=== PATIENT | female | born 2000 | race Caucasian/White ===

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

== ENCOUNTER 2022-01-22 13:34 | Emergency (ER) | payer MEDICAID ==
[~2022-01-22] VITALS: Ht 172.7 cm; Wt 92.8 kg
[2022-01-22 13:52] VITALS: BP 114/63
--- NOTE | 2022-01-22 13:58 | NUR ---
SHAYY. HANDED ON URINE CUP.
--- NOTE | 2022-01-22 15:06 | NUR ---
21 Y/O FEMALE BIB SELF C/O 01/13 LLQ ABD PAIN, URINARY BURNING X 1 WEEK. 5 WEEKS . PT DENIES DYSURIA, HEMATURIA. LMP 12/13/21. LUNG SOUNDS CTA. PT DENIES CHEST PAIN, SOB. PT DENIES FEVER OR CHILLS. PT ALERT AND ORIENTED X4. BED LOCKED IN LOWEST POSITION. BED RAILX1. PMH: DENIES MEDS:DENIES NKA
[2022-01-22 15:37] LABS: BASOPHILS # (AUTO) 0.1 K/uL (0.00-0.22); BASOPHILS % (AUTO) 0.6 % (0.0-2.0); EOSINOPHILS # (AUTO) 0.2 K/uL (0-0.4); EOSINOPHILS % (AUTO) 2.4 % (0.0-4.0); HEMATOCRIT 41.5 % (36-48); HEMOGLOBIN 13.7 g/dL (12.0-16.0); LYMPHOCYTES # (AUTO) 2.2 K/uL (2.5-16.5); MEAN CORPUSCULAR HEMOGLOBIN 28 pg (27-31); MEAN CORPUSCULAR HGB CONC 33 g/dL (33-37); MEAN CORPUSCULAR VOLUME 83.4 fL (80-94); MONOCYTES # (AUTO) 0.8 K/uL (0.8-1.0); MONOCYTES % (AUTO) 7.6 % (1.7-9.3); NEUTROPHILS # (AUTO) 6.8 K/uL (1.8-7.7); NEUTROPHILS % (AUTO) 67.4 % (42.2-75.2); PLATELET COUNT (AUTO) 188 K/uL (140-450); RED BLOOD CELL COUNT(AUTO) 4.98 MIL/uL (4.20-5.40); RED CELL DISTRIBUTION WIDTH 14.7 % (11.6-13.7); WHITE BLOOD COUNT (AUTO) 10.1 K/uL (4.5-11.0)
--- NOTE | 2022-01-22 16:17 | NUR ---
US AT PT BEDSIDE
[2022-01-22 16:19] LABS: BILIRUBIN,URINE NEGATIVE (NEGATIVE); BLOOD, URINE NEGATIVE (NEGATIVE); COLOR,URINE YELLOW (YELLOW); LEUKOCYTE ESTERASE ,URINE TRACE (NEGATIVE); NITRITE, URINE NEGATIVE (NEGATIVE); PH,URINE 5.5 (5.0-9.0); UGLUCOSE NEGATIVE (NEGATIVE)
[2022-01-22 16:24] LABS: APPEARANCE,URINE HAZY (CLEAR)
[2022-01-22 16:32] LABS: RBC,URINE NONE SEEN /HPF (0-5); WBC,URINE 0-5 /HPF (0-5)
[2022-01-22] MEDS ORDERED: NITR100C7 PO (17:29)
[2022-01-22 17:51] VITALS: BP 117/74
== END 2022-01-22 17:51 | disposition home or self-care (01) ==
LOC: MED 13:34
DX: O23.41 Unspecified infection of urinary tract in pregnancy, first trimester (principal); O34.81 Maternal care for other abnormalities of pelvic organs, first trimester; N83.202 Unspecified ovarian cyst, left side; Z3A.01 Less than 8 weeks gestation of pregnancy; Z79.2 Long term (current) use of antibiotics
CPT/HCPCS: 36415; 76817; 81001; 81025; 84702; 85025; 86900; 86901; 87086; 99284; Q0092

== ENCOUNTER 2022-01-27 19:33 | Emergency (ER) | payer MEDICAID ==
[~2022-01-27] VITALS: Ht 175.3 cm; Wt 93.4 kg
[~2022-01-27 19:33] MED LIST: NITR100C7 PO
[2022-01-27 19:39] VITALS: BP 135/69
--- NOTE | 2022-01-27 19:45 | NUR ---
URINE COLLECTED AND HANDED TO LAB
--- NOTE | 2022-01-27 19:51 | NUR ---
PT TAKEN TO BED 6
--- NOTE | 2022-01-27 19:53 | NUR ---
Dr. Ralph examining patient.
--- NOTE | 2022-01-27 20:00 | NUR ---
21/F BIB SELF C/O VAGINAL BLEEDING. PATIENT STATED THAT BLEEDING STARTED THIS MORNING AND HALF A LINER WAS SATURATED IN BLOOD. PATIENT IS GETTING CARE, THE LAST VISIT WAS 2WKS AGO ON Wednesday01/12/2022. PATIENT STATED "THIS IS MY SECOND , I LOST THE FIRST ONE, I AM CURRENTLY 6WKS ." PATIENT IS CRYING AND COOPERATIVE. RR EVEN AND UNLABORED. NO S/S OF DISTRESS. PATIENT DENIES N/V/D/C/SOB/CP AT THIS TIME. PLACED IN A GOWN AND BLANKETS FOR COMFORT. BED LOW AND LOCKED. SIDE RAIL UP FOR SAFETY. CALL LIGHT IN REACH. ALL NEEDS MET AT THIS TIME. LMP DECEMBER 13 2021 PMHX DENIES MEDS ABX(UNKNOWN) FOR UTI X1WK NKA
--- NOTE | 2022-01-27 20:03 | NUR ---
LAB AT BEDSIDE
--- NOTE | 2022-01-27 20:10 | NUR ---
Ultrasound at bedside.
[2022-01-27 20:19] LABS: BASOPHILS # (AUTO) 0.1 K/uL (0.00-0.22); BASOPHILS % (AUTO) 0.8 % (0.0-2.0); EOSINOPHILS # (AUTO) 0.3 K/uL (0-0.4); EOSINOPHILS % (AUTO) 2.5 % (0.0-4.0); HEMOGLOBIN 12.7 g/dL (12.0-16.0); LYMPHOCYTES # (AUTO) 2.3 K/uL (2.5-16.5); LYMPHOCYTES % (AUTO) 22.7 % (20.5-51.1); MEAN CORPUSCULAR HEMOGLOBIN 28 pg (27-31); MEAN CORPUSCULAR HGB CONC 33 g/dL (33-37); MEAN CORPUSCULAR VOLUME 83.1 fL (80-94); MONOCYTES # (AUTO) 0.8 K/uL (0.8-1.0); MONOCYTES % (AUTO) 7.6 % (1.7-9.3); NEUTROPHILS # (AUTO) 6.7 K/uL (1.8-7.7); NEUTROPHILS % (AUTO) 66.4 % (42.2-75.2); PLATELET COUNT (AUTO) 303 K/uL (140-450); RED BLOOD CELL COUNT(AUTO) 4.57 MIL/uL (4.20-5.40); RED CELL DISTRIBUTION WIDTH 14.9 % (11.6-13.7); WHITE BLOOD COUNT (AUTO) 10.1 K/uL (4.5-11.0)
[2022-01-27 20:22] LABS: BILIRUBIN,URINE NEGATIVE (NEGATIVE); BLOOD, URINE 3+ (NEGATIVE); COLOR,URINE YELLOW (YELLOW); LEUKOCYTE ESTERASE ,URINE TRACE (NEGATIVE); NITRITE, URINE NEGATIVE (NEGATIVE); UGLUCOSE NEGATIVE (NEGATIVE)
[2022-01-27 20:28] LABS: APPEARANCE,URINE HAZY (CLEAR)
[2022-01-27 20:38] LABS: ALBUMIN 3.8 g/dL (3.4-5.0); ANION GAP 13.2 (8-16); CARBON DIOXIDE 24.5 mmol/L (21-32); CREATININE 0.8 mg/dL (0.6-1.3); POTASSIUM 3.7 mmol/L (3.5-5.1); TOTAL BILIRUBIN 0.3 mg/dL (0.0-1.0)
[2022-01-27 20:44] LABS: RBC,URINE 0-5 /HPF (0-5); WBC,URINE 0-5 /HPF (0-5)
--- NOTE | 2022-01-27 21:00 | NUR ---
MD JOSÉ AT BEDSIDE
[2022-01-27 21:01] VITALS: BP 122/71
--- NOTE | 2022-01-27 21:01 | NUR ---
Patient discharged with v/s stable. Written and verbal after care instructions given and explained. Patient verbalized understanding. Ambulatory with steady gait. All questions addressed prior to discharge. Advised to follow up with PMD.
--- NOTE | 2022-01-27 21:01 | NUR ---
The patient's care was reviewed and supervised by Debora Meza RN.
== END 2022-01-27 21:01 | disposition home or self-care (01) ==
LOC: EDSEX → MED 19:33
DX: O20.8 Other hemorrhage in early pregnancy (principal); Z3A.01 Less than 8 weeks gestation of pregnancy; Z79.899 Other long term (current) drug therapy
CPT/HCPCS: 36415; 76801; 80053; 81001; 84702; 85025; 86900; 86901; 87086; 99284; Q0092

== ENCOUNTER 2022-02-03 12:47 | Emergency (ER) | payer MEDICAID ==
[~2022-02-03] VITALS: Ht 172.7 cm; Wt 92.1 kg
[2022-02-03 13:01] VITALS: BP 124/61
--- NOTE | 2022-02-03 13:42 | NUR ---
ULTRASOUND AT PATIENT BEDSIDE
[2022-02-03 13:43] LABS: BASOPHILS # (AUTO) 0.1 K/uL (0.00-0.22); BASOPHILS % (AUTO) 0.6 % (0.0-2.0); EOSINOPHILS # (AUTO) 0.1 K/uL (0-0.4); EOSINOPHILS % (AUTO) 1.3 % (0.0-4.0); HEMATOCRIT 41.1 % (36-48); HEMOGLOBIN 13.7 g/dL (12.0-16.0); LYMPHOCYTES % (AUTO) 21.1 % (20.5-51.1); MEAN CORPUSCULAR HEMOGLOBIN 28 pg (27-31); MEAN CORPUSCULAR HGB CONC 33 g/dL (33-37); MEAN CORPUSCULAR VOLUME 83.9 fL (80-94); MONOCYTES # (AUTO) 0.5 K/uL (0.8-1.0); MONOCYTES % (AUTO) 5.7 % (1.7-9.3); NEUTROPHILS # (AUTO) 6.8 K/uL (1.8-7.7); NEUTROPHILS % (AUTO) 71.3 % (42.2-75.2); PLATELET COUNT (AUTO) 301 K/uL (140-450); RED CELL DISTRIBUTION WIDTH 15.1 % (11.6-13.7); WHITE BLOOD COUNT (AUTO) 9.6 K/uL (4.5-11.0)
[2022-02-03 13:52] LABS: APPEARANCE,URINE CLEAR (CLEAR); BILIRUBIN,URINE NEGATIVE (NEGATIVE); BLOOD, URINE 3+ (NEGATIVE); COLOR,URINE YELLOW (YELLOW); LEUKOCYTE ESTERASE ,URINE NEGATIVE (NEGATIVE); NITRITE, URINE NEGATIVE (NEGATIVE); UGLUCOSE NEGATIVE (NEGATIVE)
[2022-02-03 14:17] LABS: WBC,URINE 0-5 /HPF (0-5)
[2022-02-03 14:19] LABS: OTHER CASTS, URINE None Seen /LPF (None Seen)
--- NOTE | 2022-02-03 14:26 | NUR ---
21/F STATES SHE IS CURRENTLY 8 WEEKS AND BEGAN HAVING VAGINAL BLEEDING X1 HOUR. DENIES ABDOMINAL PAIN, N/V/D. PATIENT IS A1. PT STATED THE BLEEDING IS MINOR, AND "ONLY SOAKED HER UNDERWEAR." PT STATED SHE IS ONLY EXPERICING MINOR PAIN IN HER L LOWER PELVIC REGION, 2/10 THAT IS CRAMP LIKE. PT A&OX4 PMH: DENIES NKA
--- NOTE | 2022-02-03 16:50 | NUR ---
Patient appears to be resting comfortably in bed. Vital Signs within normal limits. Respirations even and unlabored.
--- NOTE | 2022-02-03 17:17 | NUR ---
RHOGAM SHOT GIVEN BEDSIDE IN R [place] REGION. PT HANDLED PROCEDURE WELL
--- NOTE | 2022-02-03 17:30 | NUR ---
NADR NOTED FROM RHOGAM GIVEN
[2022-02-03 17:31] VITALS: BP 118/54
== END 2022-02-03 17:30 | disposition home or self-care (01) ==
LOC: MED 12:47
DX: O20.0 Threatened abortion (principal); Z3A.08 8 weeks gestation of pregnancy; Z79.899 Other long term (current) drug therapy
CPT/HCPCS: 36415; 76817; 81001; 81025; 84702; 85025; 86886; 86900; 86901; 99285; J2790; Q0092